=== PATIENT | female | born 1965 | race Caucasian/White ===

== ENCOUNTER → 2016-11-20 | Outpatient (CLI) | payer BC, OTHER ==
--- NOTE | 2016-11-20 12:34 | REP ---
DIGITAL DIAGNOSTIC BILATERAL MAMMOGRAPHY WITH CAD AND FOCUSED RIGHT BREAST SONOGRAPHY: HISTORY: Palpable lump in the right breast on patient breast self-examination. The patient reports that this is palpable for the last 2 weeks. Comparison mammography is from October 30, 2015, May 31, 2014, and May 17, 2013. MAMMOGRAPHIC FINDINGS: A skin marker is affixed to the skin at the site of the palpable lump in the upper outer quadrant right breast. Routine views the right breast are augmented by magnified focal spot compression CC, MLO and true MLO views. A well-circumscribed 2.4 cm mass is again seen in the upper outer quadrant of the right breast. This is unchanged from the most recent prior mammography of November 14, 2015. Cysts were identified in this location in 2012 in the appearance is changed little since 2012. No other mass lesion is seen. No architectural distortion, microcalcification, or worrisome skin change is seen on either side. Breast parenchyma remains heterogeneously dense in a pattern which may inhibit the sensitivity of mammography. SONOGRAPHIC FINDINGS: At the 10 o'clock position to 11 o'clock position in the right breast, sonography at the level of the palpable lump demonstrates a 2.7 x 2.4 x 2.0 cm anechoic cyst located 6 mm from the nipple. This is felt to account for the mammographic opacity and the palpable lump. No suspicious sonographic finding. IMPRESSION: BIRADS category 2 benign breast imaging. A 2.7 cm simple cyst is seen at the site of the palpable lump in the upper outer quadrant of the right breast confirmed sonographically. Clinical follow-up is advised. BI-RADS/ACR category 2 mammogram. Benign finding(s). Routine annual screening mammography (for women over age 40). This mammogram was interpreted with the aid of an FDA-approved computer-aided detection system. The patient states that she/he has not had a clinical breast exam in over a year. The patient letter being requested is M2, Dense . Signed by Victor Hugo Ascencio MD 11/20/2016 01:56 P
== END ==
LOC: M RAD 09:58
PROVIDERS: ATTEND Family Medicine
DX: N60.01 Solitary cyst of right breast (principal)
CPT/HCPCS: 76642; G0204

== ENCOUNTER → 2017-04-23 | Outpatient (CLI) | payer BC, OTHER ==
--- NOTE | 2017-04-23 20:18 | REP ---
HISTORY: Pain times one month. No trauma. COMPARISON: No priors. There is minimal tricompartmental marginal osteophytosis. There is no acute fracture. IMPRESSION: Slight degenerative changes. Signed by Jj Bolden DO 04/24/2017 10:37 A
== END ==
LOC: M WUC 19:29
PROVIDERS: ATTEND Physician Assistant
DX: M25.562 Pain in left knee (principal)

== ENCOUNTER → 2018-03-23 | Outpatient (REF) | payer BC, OTHER ==
[2018-03-26 14:16] LABS: HPV LOW VOL RFLX Negative (Negative)
== END ==
LOC: M LAB REF 09:37
DX: Z01.419 Encounter for gynecological examination (general) (routine) without abnormal findings (principal)
CPT/HCPCS: G0123

== ENCOUNTER → 2018-04-23 | Outpatient (CLI) | payer BC, OTHER | LOC: M RAD 08:38 | DX: Z12.31 Encounter for screening mammogram for malignant neoplasm of breast (principal) | CPT/HCPCS: 77067 ==

== ENCOUNTER → 2019-05-30 | Outpatient (CLI) | payer BC, OTHER ==
--- NOTE | 2019-05-30 15:12 | REPMRS ---
Patient History The patient states she has not had a clinical breast exam in over a year. Family history of breast cancer at age 50 or over in mother, breast cancer at age 50 or over in maternal grandmother, prostate cancer at age 50 or over in father. Took hormonal contraceptives for 2 years. Taking unspecified hormones for 20 years. Patient has numerous skin tags in both axilla, too many to jade Digital Mammo Screening Bilat: May 30, 2019 - Exam #: [id number] Bilateral CC and MLO view(s) were taken. Technologist: Mikayla Juarez, Technologist Prior study comparison: April 23, 2018, bilateral digital mammo screening bilat performed at [facility]. November 20, 2016, digital mammo diagnostic bilateral performed at [facility]. November 14, 2015, digital woman screen mammo, performed at [facility]. FINDINGS: The breast tissue is heterogeneously dense. This may lower the sensitivity of mammography. There are multiple well circumscribed nodular opacities in each breast, similar to previous study. On the right there has been a decrease in the size of one of these opacities since the 2017 prior study. On the left, there are two nodular opacities which appear more prominent than prior studies, one in the upper outer and the other in the inferomedial quadrant. These each measure 13 mm in greatest diameter. These merit further evaluation. There is a moderate amount of heterogeneously dense fibroglandular tissue which is fairly symmetric. There is no other interval development of dominant mass, architectural distortion, or grouped microcalcification typical of malignancy. There has been no other change in the appearance of the mammogram from the prior studies. 3-D tomosynthesis shows no additional findings. Assessment: BI-RADS/ACR category 0 mammogram, Incomplete: Need additional imaging evaluation and/or prior mammograms for comparison. Recommendation Ultrasound and special view mammogram of the left breast. This patient's Lifetime Breast Cancer RIsk is estimated at 19.1 %. This mammogram was interpreted with the aid of an FDA-approved computer-aided dectection system. Electronically Signed By: Byron Ascencio MD 05/30/19 [id number]
== END ==
LOC: M RAD 14:00
PROVIDERS: ATTEND Family Medicine
DX: R92.2 Inconclusive mammogram (principal); Z80.3 Family history of malignant neoplasm of breast; Z92.0 Personal history of contraception; Z92.23 Personal history of estrogen therapy

== ENCOUNTER → 2019-06-13 | Outpatient (CLI) | payer BC, OTHER ==
[~2019-06-13] MED LIST: AMLO5TAB6 PO; ATEN50TA2 PO; LETR2.5T2 PO; LEVO50TA5 PO; LOSA100T5 PO; METF500T13 PO; METO1TAB7 PO; SILV40CR EXT; SUPETAB44 PO
--- NOTE | 2019-06-13 16:48 | REP ---
DIAGNOSTIC MAMMOGRAM LEFT BREAST WITH LEFT BREAST ULTRASOUND: Spot compression views of the left breast was performed and correlated with the recent mammogram of 05/30/2019 and compared to other prior exams. Lobulated nodule in the medial inferior left breast is confirmed measuring approximately 1.3 cm in diameter. In the lateral aspect of the left breast there are two fairly smoothly marginated nodules adjacent to one another measuring about 14 mm and 9 mm maximally. Real-time sonographic evaluation of the left breast is performed. At the site of the lobulated nodule inferomedially there is a solid nodule at 7 o'clock measuring 1.2 x 1.1 x 1.0 cm. Margins are lobulated and it appears taller than wide with mild shadowing. Recommend ultrasound guided biopsy. Laterally in the upper outer quadrant of the left breast there are two cysts which appear to correspond to the two nodules by mammography, measuring 7 mm and 6 mm maximally. IMPRESSION: Lobulated nodule inferomedial left breast corresponds to a solid nodule at 7 o'clock by ultrasound. 1.2 cm in maximum diameter. This appears suspicious and I would recommend ultrasound guided biopsy with postprocedure mammogram. In the upper outer quadrant of the left breast, two nodules appear to correspond to benign cysts. ACR 4 suspicious. BIRADS 4: BI-RADS/ACR category 4 mammogram. Suspicious Abnormality - biopsy should be considered. The patient letter being requested is M4. Electronically Signed by Miguel Grace MD 06/14/2019 11:34 P
== END ==
LOC: M RAD 13:36
PROVIDERS: ATTEND Family Medicine
DX: R92.2 Inconclusive mammogram (principal); N63.20 Unspecified lump in the left breast, unspecified quadrant

== ENCOUNTER → 2019-07-11 | Outpatient (CLI) | payer BC, OTHER ==
[~2019-07-11] MED LIST changes: +LIDOCAINE 1% MDV 20ML VIAL As Ordered ONE
[2019-07-11 12:55] VITALS: BP 138/88
--- NOTE | 2019-07-11 13:37 | REP ---
POSTBIOPSY MAMMOGRAM LEFT BREAST: MLO and CC views left breast performed following ultrasound guided biopsy of a nodule in the medial aspect of the left breast, as identified on recent studies 05/30/2019 and 06/13/2019. A metallic clip is seen at the site of the nodule marking the site of the biopsy. Electronically Signed by Miguel Grace MD 07/12/2019 09:55 A
--- NOTE | 2019-07-12 09:54 | REP ---
ULTRASOUND GUIDED LEFT BREAST BIOPSY The procedure was performed under the direct supervision of Dr. Grace The patient has a history of a 1.2 cm lobulated nodule in the 7 o'clock position of the left breast seen on a previous mammogram dated 06/13/2019. The risks and benefits of the procedure were explained to the patient and informed consent was obtained. The left breast nodule was localized using ultrasound guidance. The skin was prepped and draped in a sterile fashion. 1% Xylocaine was used as a local anesthetic. Using ultrasound guidance a 13-gauge suction assisted Mammotome needle was inserted and six core biopsy samples were obtained. A marker clip was placed at the biopsy site. The patient tolerated the procedure well and there were no immediate complications. After the appropriate amount of monitored convalescence the patient was discharged from the department. Electronically Signed by JOEY Florence 07/11/2019 04:35 P Electronically Signed by Miguel Grace MD 07/12/2019 09:45 A
== END ==
LOC: M IRPRO 11:43
PROVIDERS: ATTEND Surgery
DX: N63.24 Unspecified lump in the left breast, lower inner quadrant (principal); C50.912 Malignant neoplasm of unspecified site of left female breast

== ENCOUNTER → 2019-07-26 | Outpatient (REF) ==
[~2019-07-26] MED LIST changes: -AMLO5TAB6 PO; -LETR2.5T2 PO; -LIDOCAINE 1% MDV 20ML VIAL As Ordered ONE; -METO1TAB7 PO; -SILV40CR EXT
== END ==
LOC: M LAB LCGH 15:21
PROVIDERS: ATTEND Nurse Practitioner Family
DX: L82.1 Other seborrheic keratosis (principal)

== ENCOUNTER → 2019-07-27 | Outpatient (CLI) | payer BC, OTHER ==
[2019-07-27 15:20] LABS: CALCIUM LEVEL 9.8 MG/DL (8.5-10.1); CREATININE FOR GFR 1.07 MG/DL (0.55-1.30); GLOMERULAR FILTRATION RATE 57.1 (>51); POTASSIUM SERUM 4.6 MEQ/L (3.5-5.1)
--- NOTE | 2019-07-30 09:43 | ECGEPIP ---
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
== END ==
LOC: M LAB 14:15
PROVIDERS: ATTEND Anesthesiology
DX: E11.9 Type 2 diabetes mellitus without complications (principal); I10 Essential (primary) hypertension

== ENCOUNTER 2019-08-02 06:13 | Day surgery (SDC) | payer BC, OTHER ==
[~2019-08-02] VITALS: Ht 158.8 cm; Wt 136.5 kg
[~2019-08-02 06:13] MED LIST changes: +LIDOCAINE 1% MDV 20ML VIAL SQ PRN; +LIDOCAINE 5% (LIDODERM) PATCH TD ONE; +LR 1,000 ML IV ONE
[2019-08-02] MEDS ORDERED: LIDOCAINE 5% (LIDODERM) PATCH As Ordered ONE (06:58)
--- NOTE | 2019-08-02 07:30 | ECGEPIP ---
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
[2019-08-02] MEDS ORDERED: LIDOCAINE 1% MDV 20ML VIAL As Ordered ONE (08:01)
[2019-08-02] MEDS ORDERED: METHYLENE BLUE 0.5% (5MG/ML) 10 ML AMP (PROVAYBLUE)(Q9968 PER 1MG) As Ordered ONE (10:43)
[2019-08-02] MEDS ORDERED: ROCURONIUM BROMIDE 50 MG/5 ML VIAL As Ordered ONE ×2 (11:25→12:00)
[2019-08-02] MEDS ORDERED: PROPOFOL 200 MG/20 ML VIAL As Ordered ONE ×2 (11:25→13:00)
[2019-08-02] MEDS ORDERED: MIDAZOLAM INJ 2 MG/2 ML VIAL (J2250) As Ordered ONE (11:25)
[2019-08-02] MEDS ORDERED: LIDOCAINE 2% INJ 100 MG/5 ML SDV (FOR ANES.) As Ordered ONE (11:25)
[2019-08-02] MEDS ORDERED: dexameTHASONE 4 MG/ML 1ML VIAL (J1100) As Ordered ONE (11:25)
[2019-08-02] MEDS ORDERED: fentaNYL 250 MCG/5 ML INJECTION (J3010) As Ordered ONE (11:25)
[2019-08-02] MEDS ORDERED: DESFLURANE 240 ML INHALANT As Ordered ONE (12:00)
[2019-08-02] MEDS ORDERED: ACETAMINOPHEN 1000MG 100ML IV BTL (OFIRMEV) (J0131 PER 10MG) As Ordered ONE (12:04)
[2019-08-02] MEDS ORDERED: ONDANSETRON 4MG/2ML VIAL (J2405) As Ordered ONE ×2 (12:48→12:49)
[2019-08-02] MEDS ORDERED: SUGAMMADEX SODIUM 500 MG/5 ML VIAL (BRIDION) As Ordered ONE (12:58)
[2019-08-02] MEDS ORDERED: HYDROmorphone HCL 2 MG/ML 1ML VIAL (J1170) As Ordered ONE (13:50)
[2019-08-02] MEDS ORDERED: KETOROLAC 60 MG/2 ML VIAL (J1885) As Ordered ONE (14:17)
[2019-08-02] MEDS ORDERED: HYDROMORPHONE HCL 0.5 MG/ 0.5 ML SYRINGE (J1170 PER 1) IV PRN (15:15)
[2019-08-02] MEDS ORDERED: ACETAMINOPHEN TAB 650MG DOSE (2X325MG) PO PRN ×2 (15:15→16:45)
[2019-08-02] MEDS ORDERED: fentaNYL 100 MCG/2 ML INJECTION (J3010) IV PRN (15:15)
[2019-08-02] MEDS ORDERED: oxyCODONE 5MG TAB PO PRN (15:15)
[2019-08-02] MEDS ORDERED: METOCLOPRAMIDE INJ 10MG/2ML VIAL (J2765) IV PRN ×2 (15:15→16:45)
[2019-08-02] MEDS ORDERED: ONDANSETRON 4MG/2ML VIAL (J2405) IV PRN ×2 (15:15→16:45)
[2019-08-02] MEDS ORDERED: NORCO, ANEXSIA 5/325MG TABLET (HYDROcodone/ACETAMINOPHEN) PO PRN ×2 (15:15→16:45)
[2019-08-02] MEDS ORDERED: LR 1,000 ML IV SCH ×2 (15:15→17:30)
[2019-08-02] MEDS ORDERED: MORPHINE 4 MG/ML 1ML VIAL/SYRINGE (J2270) IV PRN (16:45)
[2019-08-02] MEDS ORDERED: oxyCODONE 5MG TAB As Ordered ONE (17:09)
--- NOTE | 2019-08-02 17:24 | REP ---
Specimen radiography: Four views. History: The patient is status post needle localization directed excisional biopsy left breast for a medial nodule. Findings: A sequence of two specimen radiograph images demonstrate the needle biopsy marker clip and the target nodule along the course of the localizer wire within the specimen. Impression: The target nodule has been removed. Electronically Signed by Victor Hugo Ascencio MD 08/02/2019 06:50 P
[2019-08-02 18:28] VITALS: BP 153/70
[2019-08-02] MEDS: metFORMIN (GLUCOPHAGE) 500 MG TAB PO SCH (18:59)
--- NOTE | 2019-08-02 19:01 | REP ---
Left Breast Lymphoscintigraphy The procedure was performed by JOEY Galvan, under the direct supervision of Dr. Ascencio. The risks and benefits of the procedure were explained to the patient and informed consent was obtained both verbally and written. Directly prior to the start of the procedure, a formal timeout was completed in the procedure room. Using topical anesthetic and sterile technique 1.059] mCi of technetium 99m filtered sulfur colloid was injected subdermally in eight fractionated periareolar injections. Images obtained 1 hour after injection show bolivar uptake laterally and superiorly-medially Impression: 1. Bolivar uptake laterally and superiorly-medially Reviewed by JOEY Hahn 08/02/2019 12:03 P Electronically Signed by Victor Hugo Ascencio MD 08/02/2019 06:52 P
--- NOTE | 2019-08-02 19:02 | REP ---
Left breast localization This procedure is performed by JOEY Galvan, under the personal supervision of Dr. Ascencio. The risks and benefits of the procedure were explained to the patient and informed consent was obtained both verbally and written. Directly prior to the start of the procedure, a formal timeout was done in the procedure room. The lateral approach was utilized. The marker clip was localized using mammographic guidance. The skin was prepped and draped in a sterile fashion. 6 ml of 1% lidocaine was used as a local anesthetic. A 7-cm Kerrick needle wire system was inserted. A followup mammographic images demonstrate good needle placement. The patient tolerated the procedure well and there were no immediate complications. Reviewed by JOEY Hahn 08/02/2019 01:22 P Electronically Signed by Victor Hugo Ascencio MD 08/02/2019 06:52 P
[2019-08-02 21:45] VITALS: BP 137/61
[2019-08-03 02:24] VITALS: BP 142/61
[2019-08-03] MEDS ORDERED: LEVOTHYROXINE 75MCG TABLET (0.075MG) PO SCH (06:00)
[2019-08-03 06:08] VITALS: BP 143/63
[2019-08-03 08:13] VITALS: BP 144/64
[2019-08-03] MEDS: metFORMIN (GLUCOPHAGE) 500 MG TAB PO SCH (08:13)
[2019-08-03] MEDS ORDERED: hydroCHLOROthiazide 25 MG TAB PO SCH (09:00)
[2019-08-03] MEDS ORDERED: LOSARTAN 50 MG TAB PO SCH (09:00)
[2019-08-03] MEDS ORDERED: ATENOLOL 50 MG TAB PO SCH (09:00)
[2019-08-03 10:00] VITALS: BP 140/63
--- NOTE | 2019-08-04 08:51 | IPN ---
DATE: 08/03/2019 HISTORY: Patient is 1 day postop from her left partial mastectomy with sentinel lymph node biopsy for breast cancer. She was placed on observation because of inadequate oxygen saturations in the recovery room. She has done well overnight and her oxygen has been weaned off this morning with an oxygen saturation recorded of 93%. She reports she is quite comfortable with only some mild soreness in the breast. Vital signs show that she has been afebrile overnight. Her pulse is in the 50s. Blood pressure is good. Intake and output show that she has had 800 mL orally today with 625 mL of urine output. PHYSICAL EXAM: The patient's left breast dressing shows a small amount of dried blood overlying the partial mastectomy site. She has clear breath sounds and the heart is a regular rate and rhythm. IMPRESSION: The patient is doing very well now 1 day postop. She is off oxygen with acceptable oxygen saturations. By history from her it does sound as if she may have sleep apnea and this should be looked into on an outpatient basis. She has taken no pain medications today. PLAN: The patient will be discharged home. She will not be provided a prescription for any pain medications. She was counseled regarding activity and diet. She has a followup appointment with me on 08/15/2019. She can change her dressing and shower on 08/07/2019. ROSE
--- NOTE | 2019-08-04 13:59 | RO ---
DATE OF PROCEDURE: 08/02/2019 PREOPERATIVE DIAGNOSIS: Infiltrating ductal carcinoma left breast. POSTOPERATIVE DIAGNOSIS: Infiltrating ductal carcinoma left breast. PROCEDURES PERFORMED 1. Left breast/axilla sentinel lymph node biopsy. 2. Needle-localized left partial mastectomy. SURGEON: Camilo Andrea MD ANESTHESIA: General. INDICATIONS FOR THE PROCEDURE: The patient is a 53-year-old woman who was found on routine mammography to have a small nodule in the lower inner aspect of the left breast. Ultrasound-guided biopsy confirmed carcinoma. She is now for a left partial mastectomy, which will require needle localization and a sentinel lymph node biopsy. OPERATIVE PROCEDURE: The patient was taken to the x-ray department prior to her going to the operating room. She underwent a needle localization of her known cancer in the lower inner aspect of the left breast. She also underwent injections of radioactive tracer for her sentinel lymph node biopsy. Lymphoscintigraphy was performed. She was then moved to the operating room. She was placed on the table in a supine position. Thromboembolic deterrents (TEDs) and sequentials were utilized. The patient was placed under general endotracheal anesthesia. The patient's left breast, axilla, and upper extremity were prepped and draped in a sterile fashion. I would note that prior to performing the prep, I did inject several small aliquots of a 50/50 mixture of saline and methylene blue to facilitate identification of the lymph nodes. This was injected in the subcutaneous tissues of the upper outer quadrant of the breast around the edge of the areola and also into the area of her known cancer. Initially, I proceeded with the sentinel lymph node biopsy. Examination with the gamma probe revealed some fairly intense activity in the lower anterior aspect of the axilla in the area about 2.5-3 cm in maximum diameter. A short transverse incision was made in this area. The dissection was carried through the subcutaneous tissues using the cautery. The axillary fascia was opened, and dissection was carried deeper into the axilla utilizing the NeoProbe for guidance. The area of hottest activity was identified, and a lymph node approximately 1 cm in diameter was identified and removed with a small amount of surrounding fibrofatty tissue. A 10-second gamma count was 49,730. This was marked sentinel node #1. A second area of activity was identified adjacent to this, and a second smaller node was removed. This had a 10-second count of 6460. This was labeled sentinel node #2, and these two were sent to the laboratory fresh for frozen section. Inspection with the NeoProbe identified continued activity of fairly significant intensity. A third node also about 1 cm in size was removed with some surrounding fibrofatty tissue. This had a 10-second gamma count of 20,235, and a fourth area of much less intense activity which may actually have represented a small portion of the node #3 was removed. This had a count of 1543. Background count was approximately 253. No further areas of significant gamma activity were identified with the NeoProbe. The wound was irrigated gently, and hemostasis was ensured. I proceeded to place several sutures of chromic at the level of the fascia. I was contacted by Dr. Morales of the pathology department indicating that all of the nodes were negative on frozen section for any malignancy. The skin edges were approximated with a running subcuticular 4-0 Vicryl. I then moved onto the left partial mastectomy. The localizing wire entered the medial aspect of the left breast about at the level of the nipple but extended slightly inferior below approximately the edge of the areola inferiorly. A skin marker was used to outline the course of the wire. I elected to make an infraareolar curved incision, excising a small rim of tissue in this area. The incision was made, and the rim of tissue was left attached to the underlying skin to aid in manipulation of the specimen. The skin edges were elevated surrounding the wound, and a portion of tissue approximately 6 cm in length x 4 cm in width x 4-5 cm in thickness was excised. The dissection was primarily using the cautery. Once the tissues had been partially mobilized, the guidewire was cut and delivered into the wound. The dissection was carried down just about to the pectoral fascia. The specimen was removed. It was kept in the appropriate orientation and was marked with the Vector margin marker. Two specimen x-rays were obtained using the [employer] System51[employer] portable mammography unit. These identified the cancer nodule with a marker clip lying within the center of the specimen along the course of the guidewire. The wound was inspected, and hemostasis was ensured. The skin edges were elevated off of the surrounding breast tissue to allow greater mobility of the tissue for closing the defect. The deeper tissues were approximated with interrupted simple sutures of 2-0 chromic. Some 3-0 Vicryl was used to close the edges of the skin, and a running subcuticular 4-0 Vicryl was used to approximate the skin edges more cosmetically. Steri-Strips were applied to both incisions. Bulky bandages were applied. The patient tolerated the procedure well without apparent complication. She was awakened in the operating room, extubated, and moved to the recovery room in stable condition. ROSE
== END 2019-08-03 13:30 | disposition home or self-care (01) ==
LOC: M SDC 06:13 → M MS5PR 17:50 → M SDC 08-03 13:30
PROVIDERS: ATTEND Surgery
DX: C50.912 Malignant neoplasm of unspecified site of left female breast (principal); I10 Essential (primary) hypertension; E03.9 Hypothyroidism, unspecified; E11.9 Type 2 diabetes mellitus without complications; R01.1 Cardiac murmur, unspecified; R06.83 Snoring; K21.9 Gastro-esophageal reflux disease without esophagitis; E66.01 Morbid (severe) obesity due to excess calories; Z68.43 Body mass index [BMI] 50.0-59.9, adult; Z79.899 Other long term (current) drug therapy; Z79.84 Long term (current) use of oral hypoglycemic drugs; Z78.0 Asymptomatic menopausal state
CPT/HCPCS: 19302; 76098; 78195; 88307; 93005; A9541; J0131; J1100; J1170; J1885; J2250; J2405; J3010; Q9968

== ENCOUNTER 2019-09-08 13:57 | Outpatient (RCR) | payer BC, OTHER ==
[~2019-09-08 13:57] MED LIST changes: +AMLO5TAB6 PO; +LETR2.5T2 PO; -LIDOCAINE 1% MDV 20ML VIAL SQ PRN; -LIDOCAINE 5% (LIDODERM) PATCH TD ONE; -LR 1,000 ML IV ONE; +METO1TAB7 PO
[2019-09-08 14:40] LABS: BASO % 0.4 % (0.0-1.0); EOS # 0.1 10^3/uL (0.0-0.5); EOS % 0.8 % (0.0-3.0); HEMATOCRIT 40.9 % (36.0-47.0); HEMOGLOBIN 13.6 g/dl (12.0-15.5); LYMPH # 1.8 10^3/uL (1.5-5.0); LYMPH % 16.6 % (24.0-44.0); MEAN CORPUSCULAR HEMOGLOBIN 29.8 pg (27.0-33.0); MEAN CORPUSCULAR HGB CONC 33.3 g/dl (32.0-36.5); MEAN CORPUSCULAR VOLUME 89.5 fl (80.0-96.0); MONO # 0.6 10^3/uL (0.0-0.8); NEUTROPHILS # 8.4 10^3/uL (1.5-8.5); NEUTROPHILS % 76.7 % (36.0-66.0); PLATELET COUNT, AUTOMATED 272 10^3/uL (150-450); RED BLOOD COUNT 4.57 10^6/uL (4.00-5.40)
--- NOTE | 2019-09-12 12:30 | RADONC ---
RADIATION ONCOLOGY SIMULATION NOTE DATE OF SERVICE: 09/08/2019 CHART NUMBER: [id number] Ms. Becerra was taken to the CT scan for CT simulation of her left breast field. CT was accomplished without difficulty or discomfort. Radiation treatment planning is underway and radiation treatments will begin subsequently. An immobilization device was created without difficulty or discomfort. It will be used throughout the course of treatment. I was physically present throughout the course of CT simulation. The patient reports that there was a small section of her scar which opened up last night in the shower. She has put Steri-Strips over it, so it is difficult for me to actually see. In light of this, we will run our treatment plans, and I have informed her that I would like to wait till the Thursday after Thanks to initiate treatment. This will allow an additional 1-1/2-2 weeks for healing and still be within acceptable time period.
== END 2019-09-17 ==
LOC: M ONCR 13:57
PROVIDERS: ATTEND Radiology Radiation Oncology
DX: C50.312 Malignant neoplasm of lower-inner quadrant of left female breast (principal); T81.31XA Disruption of external operation (surgical) wound, not elsewhere classified, initial encounter

== ENCOUNTER → 2019-10-18 | Outpatient (RCR) | payer BC, OTHER ==
--- NOTE | 2019-09-27 07:12 | RADONC ---
RADIATION ONCOLOGY PROGRESS NOTE DATE: 09/26/2019 CHART NUMBER: [id number] PROGRESS NOTE: Ms. Becerra is presently at a dose of 900 cGy to her left breast and is tolerating treatments quite well at this point with no complaints related to her radiation therapy. She is having no breast or bone pain. REVIEW OF SYSTEMS: The patient's review of systems is noncontributory. Denies nausea, vomiting, fevers, chills, night sweats, diplopia, headaches, anxiety or depression, anorexia, weight loss, visual disturbances, chest pain, urinary or bowel difficulties, bone pain, or neurological problems. PHYSICAL EXAMINATION: The patient's skin is in good condition with no evidence of moist or dry desquamation. The remainder of her physical exam remains unchanged. Ms. Becerra is tolerating treatments quite well and radiation will continue as scheduled.
--- NOTE | 2019-10-05 08:14 | RADONC ---
RADIATION ONCOLOGY PROGRESS NOTE DATE: 10/03/2019 CHART #: [id number] Ms. Becerra is presently at a dose of 1800 cGy to her left breast and is tolerating treatments quite well at this point with no complaints related to her radiation therapy. She has no breast or bone pain. REVIEW OF SYSTEMS: The patient's review of systems is noncontributory. Denies nausea, vomiting, fevers, chills, night sweats, diplopia, headaches, anxiety or depression, anorexia, weight loss, visual disturbances, chest pain, urinary or bowel difficulties, bone pain, or neurological problems. PHYSICAL EXAMINATION: The patient's skin is in good condition with no evidence of radiation change present. There is no moist or dry desquamation. The remainder of her physical exam remains unchanged. Ms. Becerra is tolerating treatments quite well and radiation will continue as scheduled.
--- NOTE | 2019-10-14 09:04 | RADONC ---
RADIATION ONCOLOGY PROGRESS NOTE DATE OF SERVICE: 10/10/2019 CHART NUMBER: [id number] Ms. Becerra, with a diagnosis of left breast cancer, is currently receiving local regional radiotherapy and she is at a dose of 2700 cGy to date. She is tolerating her radiotherapy quite well and denies any nausea, vomiting, coughing, sputum production or hemoptysis. Her energy level is excellent. She is able to maintain most for day-to-day activities without any alteration of her lifestyle. Skin irritation is not an issue for her. PHYSICAL EXAMINATION: The skin within the irradiated volume shows no significant erythema and certainly no focal desquamation. There is no palpable peripheral lymphadenopathy noted in the cervical, supraclavicular, axillary or inguinal lymph node chains. The remainder of the physical examination is unchanged. IMPRESSION: Tolerating therapy well. PLAN: Treatments to continue MTDD
--- NOTE | 2019-10-17 15:53 | RADONC ---
RADIATION ONCOLOGY PROGRESS NOTE DATE: 10/17/2019 CHART NUMBER: [id number] Lashonda Becerra with the diagnosis of left breast cancer stage IA, T1c, N0, M0, grade 1, HER2/kathleen negative, ER positive, NE positive is currently receiving local regional radiotherapy. She has achieved a dose to date of 3240 cGy of an anticipated 4680 cGy with a boost most likely to follow. She is tolerating her radiotherapy reasonably well, denying any nausea, vomiting, coughing, sputum production or hemoptysis. Her energy level is excellent and she is able to maintain most of her day-to-day activities without any alteration of her lifestyle. Skin irritation is not reported. She will start some Aquaphor for a very minimal discoloration of the skin. EXAMINATION FINDINGS: The skin within the irradiated volume shows virtually no evidence of erythema and certainly no focal desquamation. There is no palpable peripheral lymphadenopathy appreciated in the cervical, supraclavicular, axillary or inguinal lymph node chains. Lungs are clear. Heart regular without murmurs. Abdomen without evidence of hepatomegaly, masses, deep abdominal tenderness. Extremities without cyanosis, clubbing or edema. The remainder of the physical examination is unchanged. IMPRESSION: Tolerating therapy well. PLAN: Treatments to continue.
[~2019-10-18] MED LIST changes: +SILV40CR EXT
== END ==
LOC: M ONCR 09-20 12:42
PROVIDERS: ATTEND Radiology Radiation Oncology
DX: C50.312 Malignant neoplasm of lower-inner quadrant of left female breast (principal)

== ENCOUNTER 2019-11-14 14:10 | Outpatient (RCR) | payer BC, OTHER ==
--- NOTE | 2019-10-25 08:04 | RADONC ---
RADIATION ONCOLOGY PROGRESS NOTE DATE: 10/24/2019 CHART #: [id number] Ms. Becerra is thus far at a dose of 3420 cGy and was last treated on 10/18/2019. She has been on break this week due to a brisk skin reaction. On her last treatment on 10/18/2019, she had some desquamation of the skin. The patient is scheduled to be on rest until Thursday or of this week and then will be reevaluated for reinitiation of treatment.
--- NOTE | 2019-11-01 09:40 | RADONC ---
RADIATION ONCOLOGY SIMULATION NOTE DATE: 10/31/2019 CHART NUMBER: [id number] SIMULATION NOTE: Ms. Becerra was taken to the linear accelerator today for clinical setup of her left breast electron beam coned-down field. Setup was accomplished without difficulty or discomfort. Radiation treatment planning is underway and radiation treatments will begin subsequently. An immobilization device was created and will be used throughout the course of treatment. It was created without difficulty or discomfort. I was physically present throughout the course of clinical setup simulation.
--- NOTE | 2019-11-01 09:42 | RADONC ---
RADIATION ONCOLOGY PROGRESS NOTE DATE: CHART NUMBER: [id number] PROGRESS NOTE: Ms. Becerra is presently at a dose of 3960 cGy to her left breast and is tolerating treatments quite well at this point with no complaints related to her radiation therapy other than some pain in the inframammary and axillary regions. REVIEW OF SYSTEMS: The patient's review of systems is positive for skin some skin pain but is otherwise noncontributory. Denies nausea, vomiting, fevers, chills, night sweats, diplopia, headaches, anxiety or depression, anorexia, weight loss, visual disturbances, chest pain, urinary or bowel difficulties, bone pain, or neurological problems. PHYSICAL EXAMINATION: The patient's skin shows brisk erythema and tanning present. In the axillary inframammary regions there is moist desquamation. The remainder of her physical exam remains unchanged. The patient is using Silvadene in the affected areas and reports she is having marked improvement in her discomfort. In the meantime, radiation is continuing as scheduled.
--- NOTE | 2019-11-08 07:39 | RADONC ---
RADIATION ONCOLOGY PROGRESS NOTE DATE: 11/07/2019 CHART #: [id number] Ms. Becerra is presently at a dose of 4880 cGy to her left breast primary site and is tolerating treatments quite well at this point with no complaints at this time related to her radiation therapy. She is having no breast or bone pain other than some mild skin pain in the inframammary region. REVIEW OF SYSTEMS: The patient's review of systems is largely noncontributory. Denies nausea, vomiting, fevers, chills, night sweats, diplopia, headaches, anxiety or depression, anorexia, weight loss, visual disturbances, chest pain, urinary or bowel difficulties, bone pain, or neurological problems. PHYSICAL EXAMINATION: The patient's skin overall is in good condition. There is some desquamation in the inframammary region. The area presently being treated however has no desquamation. The remainder of her physical exam remains unchanged. Ms. Becerra is tolerating treatments quite well and radiation will continue as scheduled.
--- NOTE | 2019-11-16 08:18 | RADONC ---
RADIATION ONCOLOGY TREATMENT SUMMARY DATE: 11/14/2019 CHART NUMBER: [id number] DIAGNOSIS: Left breast cancer. STAGE: I A, pT1c, bN0, M0, grade 1, HER2/kathleen negative, ER positive, VA positive. ECOG PERFORMANCE STATUS: 0 TREATMENT SUMMARY: Ms. Becerra is a very pleasant 53-year-old white female with the diagnosis of what appears to be a stage I A, pT1c, bN0, M0, well-differentiated, grade 1, colloid/mucinous adenocarcinoma of the left breast which is ER positive, VA positive and HER2/kathleen negative who presented to us status post lumpectomy and sentinel lymph node biopsy for consideration of postoperative radiation therapy for conservative breast management. We treated the patient to her left breast for a total dose of 4860 cGy delivered in 26 fractions of 180 cGy each over 45 elapsed days from 09/20/2019 through 11/04/2019. The patient's left breast was treated on a linear accelerator via 3-D conformal technique with a 15 MV photon beam. Medial and lateral tangential reynolds were utilized. Following completion of 4680 cGy the primary site was boosted for an additional 1200 cGy delivered in 6 fractions of 200 cGy each over seven elapsed days from 11/07/2019 through 11/14/2019. The primary site boost was treated on a linear accelerator utilizing a 16 MeV electron beam prescribed to the 90% isodose line via non phos technique. This brought the primary site to a total dose of 5880 cGy delivered in 32 fractions over 52 elapsed days from 09/20/2019 through 11/14/2019. Ms. Becerra had some difficulties tolerating treatments with brisk skin reaction requiring a short treatment break. She was then able to resume radiation without further difficulty. I have scheduled the patient to see me again in 1 month for further followup. She will also continue to be followed by her other physicians as well. cc: MD Camilo Olmos MD Karen Williams, MD
== END 2019-11-18 ==
LOC: M ONCR 14:10
PROVIDERS: ATTEND Radiology Radiation Oncology
DX: C50.312 Malignant neoplasm of lower-inner quadrant of left female breast (principal)

== ENCOUNTER → 2019-12-14 | Outpatient (CLI) | payer BC, OTHER ==
[~2019-12-14] MED LIST changes: +OSTE5TAB PO
--- NOTE | 2019-12-15 11:14 | RADONC ---
RADIATION ONCOLOGY FOLLOWUP NOTE DATE: 12/14/2019 CHART #: [id number] DIAGNOSIS: Left breast cancer. STAGE: I A, pT1c,pN0,M0, grade 1, HER2/kathleen negative, ER positive, GA positive. ECOG PERFORMANCE STATUS: 0. FOLLOWUP NOTE Ms. 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 The patient presents today reporting that she is doing quite well with no complaints at this time related to her radiation therapy or disease. She has no breast or bone pain. REVIEW OF SYSTEMS: The patient's review of systems is noncontributory. Denies nausea, vomiting, fevers, chills, night sweats, diplopia, headaches, anxiety or depression, anorexia, weight loss, visual disturbances, chest pain, urinary or bowel difficulties, bone pain, or neurological problems. PHYSICAL EXAMINATION: The patient is a well-developed, well-nourished female in no acute distress. HEENT exam is normocephalic, atraumatic. Extraocular movements are intact. There is no palpable cervical, supraclavicular, infraclavicular, axillary, or inguinal lymphadenopathy present. Lungs are clear to auscultation and percussion. Heart has a regular rate and rhythm. Abdomen is benign with no hepatosplenomegaly, masses, or tenderness. Breast examination reveals no masses or discharge bilaterally. Skeletal examination reveals no tenderness to pressure or percussion of the bony skeleton. Extremities reveal no clubbing, cyanosis, or edema. Neurologic exam is grossly intact, as is the remainder of the physical examination. ASSESSMENT: The patient is clinically JOSEFINA at this time. She is being followed and managed closely by her medical oncologist, Dr. Miracle Gómez, as well as her other physicians and therefore is being discharged from our followup except on a p.r.n. basis. cc: MD Camilo Olmos MD Karen Williams, MD
== END ==
LOC: M ONCR 14:09
PROVIDERS: ATTEND Radiology Radiation Oncology
DX: C50.312 Malignant neoplasm of lower-inner quadrant of left female breast (principal)

== ENCOUNTER → 2020-06-26 | Outpatient (CLI) | payer BC ==
[~2020-06-26] MED LIST changes: +AMLO1TAB24 PO; -AMLO5TAB6 PO; +HYDR25TAB PO; +LOSA100T50 PO
--- NOTE | 2020-06-26 15:05 | REPMRS ---
Patient History The patient states she has not had a clinical breast exam in over a year. Family history of breast cancer at age 50 or over in mother, breast cancer at age 50 or over in maternal grandmother, prostate cancer at age 50 or over in father. Malignant radio exam breast specimen of the left breast, August 02, 2019. Malignant localization of breast nodule of the left breast, August 02, 2019. Malignant US guided breast biopsy of the left breast, July 11, 2019. Took hormonal contraceptives for 2 years. Taking unspecified hormones for 20 years. 3D TOMOSYNTHESIS WAS PERFORMED. [employer] [facility]. Digital Woman Screen Mammo: June 26, 2020 - Exam #: [id number] Bilateral CC and MLO view(s) were taken. Technologist: Vanessa Evans Technologist Prior study comparison: July 11, 2019, left breast digital mammo diagnostic unilateral, performed at [facility]. June 13, 2019, left breast digital mammo diagnostic unilateral, performed at [facility]. FINDINGS: There are scattered fibroglandular densities. There is a fairly symmetric fibroglandular pattern in both breasts. There has been no interval development of masses, areas of architectural distortion or clusters of microcalcifications typical of malignancy. There is a stable nodule in each breast. Assessment: BI-RADS/ACR category 2 mammogram. Benign Findings. Recommendation Routine screening mammogram of both breasts in 1 year (for women over age 40). This mammogram was interpreted with the aid of an FDA-approved computer-aided dectection system. Electronically Signed By: Miguel Grace MD 06/26/20 [id number]
== END ==
LOC: M WHC 14:10
PROVIDERS: ATTEND Internal Medicine Hematology & Oncology
DX: Z12.31 Encounter for screening mammogram for malignant neoplasm of breast (principal); C50.912 Malignant neoplasm of unspecified site of left female breast

== ENCOUNTER → 2020-08-10 | Outpatient (CLI) | payer BC ==
--- NOTE | 2020-08-10 15:53 | REP ---
INDICATION: N95.0 POSTMENOPAUSAL BLEEDING,HX BREAST CA COMPARISON: None. TECHNIQUE: Transabdominal pelvic ultrasound followed by transvaginal examination for better evaluation of the endometrium and adnexa with color Doppler evaluation of the ovaries. FINDINGS: Bladder is unremarkable and measures 6.1 x 7.8 x 4.1 cm. Anteverted uterus measures 8.3 x 4.4 x 4.7 cm and appears heterogeneous. Evaluation is somewhat limited due to body habitus and technical factors as well as overlying bowel gas. The endometrial complex measures approximately 8.4 mm thickness thickness. No obvious discrete abnormality identified. Ovaries are not visualized on either transabdominal or transvaginal imaging. No pelvic fluid or obvious adnexal mass. IMPRESSION: Considerably limited examination. Heterogeneous appearance to the uterus without discrete borders delineating myometrium and endometrium. The endometrial complex measures roughly 8.4 mm. No obvious focal mass lesion or abnormality is otherwise identified. If necessary consider pelvic MRI for further investigation. <Electronically signed by Giovanny Cabrera > 08/10/20 [id number]
== END ==
LOC: M WHC 14:18
PROVIDERS: ATTEND Obstetrics & Gynecology
DX: N95.0 Postmenopausal bleeding (principal)

== ENCOUNTER → 2020-08-21 | Outpatient (REF) | payer BC | LOC: M SFHCWAGY 19:16 | PROVIDERS: ATTEND Obstetrics & Gynecology | DX: N95.0 Postmenopausal bleeding (principal) ==

== ENCOUNTER → 2021-04-17 | Outpatient (CLI) | payer BC, OTHER ==
[~2021-04-17] MED LIST changes: +HYDR-3490 PO; -HYDR25TAB PO
--- NOTE | 2021-04-23 15:36 | SLEEPHOME ---
DIAGNOSTIC HOME SLEEP STUDY DATE: 04/17/2021 ORDERED BY: [facility] home sleep testing was performed due to concern for the obstructive sleep apnea syndrome in this patient. For testing, a nocturnal T3 respiratory monitoring device was used. Continuous record was made of pulse, oxygen saturation, air flow, chest and abdominal strain, and body position. 9 hours and 59 minutes of data were reviewed. There were 7 hours and 5 minutes marked as time in bed. During the interval marked time in bed, there were 243 respiratory events identified of 10 seconds in duration or greater for a respiratory event index 34.2. The events were primarily obstructive. Baseline pulse rate 62. Pulse rate range 46 to 102. Baseline saturation was 91%. Saturations fell to 57%. Testing was performed in both the supine and non-supine positions. IMPRESSION: Abnormal home sleep testing, with repetitive respiratory events and oxygen desaturations to 57% with a respiratory event index of 34.2, is consistent with the obstructive sleep apnea syndrome. RECOMMENDATION: The patient should be encouraged to undergo referral for formal sleep evaluation.
== END ==
LOC: M SLEEP HO 11:27
PROVIDERS: ATTEND Nurse Practitioner Family
DX: G47.33 Obstructive sleep apnea (adult) (pediatric) (principal)

== ENCOUNTER → 2021-07-02 | Outpatient (REF) | payer BC, OTHER ==
[2021-07-02 18:18] LABS: MALB URINE SIEMENS 45.4 MG/L; MAU/CREAT RATIO 15.3 MCG/MG (0.0-30.0)
== END ==
LOC: M LAB REF 17:07
PROVIDERS: ATTEND Nurse Practitioner Family
DX: E11.69 Type 2 diabetes mellitus with other specified complication (principal)

== ENCOUNTER → 2021-07-05 | Outpatient (CLI) | payer BC ==
--- NOTE | 2021-07-05 15:05 | REP ---
INDICATION: LYNDSAY SCR MAMMO/HX BREAST CA. COMPARISON: Multiple TECHNIQUE: Digital screening mammography was carried out bilaterally in the CC and MLO projections using both 2D and 3D modalities and compared to the prior exams. By history, the patient has no complaints of a palpable breast abnormality or other significant breast complaints. FINDINGS: The breasts are unchanged in size and shape when compared to the most recent examination obtained 06/26/2020. No vinny soft tissue densities or spiculated masses have developed. There is unchanged left breast postprocedural architectural distortion and there is unchanged left breast post radiation skin thickening. In the axillary tail region of the left breast seen only on the MLO view there is a new grouping of calcifications. No other suspicious features are seen in either breast. The Volpara volumetric breast density pattern is seen. IMPRESSION: BIRADS/ACR category 0 mammogram. New grouping of calcifications seen in a limited fashion left breast as described above and for which diagnostic digital magnified spot compression views are recommended in the MLO, true lateral, and if necessary both exaggerated CC medial and lateral views. This mammogram was interpreted with the aid of an FDA-approved computer-aided detection system. The patient states she had a clinical breast exam in over a year. The patient letter being requested is M0. RECOMMENDATION: As above <Electronically signed by Jj Bolden > 07/05/21 [id number]
== END ==
LOC: M WHC 14:08
PROVIDERS: ATTEND Internal Medicine Hematology & Oncology
DX: Z12.31 Encounter for screening mammogram for malignant neoplasm of breast (principal); R92.1 Mammographic calcification found on diagnostic imaging of breast; Z92.3 Personal history of irradiation; Z85.3 Personal history of malignant neoplasm of breast

== ENCOUNTER → 2021-08-01 | Outpatient (CLI) | payer BC, OTHER ==
--- NOTE | 2021-08-01 13:12 | REP ---
INDICATION: LEFT BREAST ADD VIEWS. COMPARISON: 07/05/2021 as well as multiple other prior exams. TECHNIQUE: Additional magnification and special positioning views of the left breast are performed. FINDINGS: There are clustered pleomorphic microcalcifications in the far posterosuperior aspect of the left breast. These are only visualized on MLO and mL views. They could not be visualized on any of the additional CC or exaggerated CC views. IMPRESSION: BIRADS/ACR category 4, suspicious. Clustered pleomorphic microcalcifications superiorly and far posteriorly in the left breast. These are only visualized in MLO and mL projections. Recommend stereotactic biopsy. This mammogram was interpreted with the aid of an FDA-approved computer-aided detection system. The patient letter being requested is M4. RECOMMENDATION: Recommend stereotactic biopsy left breast <Electronically signed by Miguel Grace > 08/01/21 [id number]
== END ==
LOC: M WHC 11:28
PROVIDERS: ATTEND Internal Medicine Hematology & Oncology
DX: R92.0 Mammographic microcalcification found on diagnostic imaging of breast (principal); Z85.3 Personal history of malignant neoplasm of breast
CPT/HCPCS: 77065; G0279

== ENCOUNTER → 2021-08-28 | Outpatient (CLI) | payer BC, OTHER ==
--- NOTE | 2021-08-29 14:38 | SLEEPCENT ---
DATE: 08/28/2021 ORDERED BY: Lexii Macedo Nocturnal polysomnography was performed for the titration of pressure therapy in this patient with a clinical diagnosis of obstructive sleep apnea syndrome confirmed by home testing, revealing a respiratory event index of 34.2. For testing, a ResMed F301 medium-size mask was used. There was 4 cm of water pressure applied to the circuit, and the lights were extinguished. There was 7 hours and 50 minutes of data reviewed. There was 336 minutes of sleep identified. Sleep latency was mildly prolonged at 31 minutes. REM latency was normal at 97.5 minutes. Sleep architecture improved with optimal pressure therapy. There were four REM cycles noted. Overall sleep efficiency was 72.3%. The electrocardiogram showed a sinus rhythm with an average heart rate of 56 beats per minute. Unifocal ventricular ectopic beats were seen. EEG showed normal waveforms for wake and sleep. Respiratory events were best palliated with CPAP at a pressure of 16. There was some minor limb activity early in the study. Limb movement arousal index on this occasion was 6.4. IMPRESSION: Obstructive sleep apnea syndrome (G47.33). RECOMMENDATION: Nightly use of pressure therapy, 16 cm of water.
== END ==
LOC: M SLEEP 20:00
PROVIDERS: ATTEND Nurse Practitioner Adult Health
DX: G47.33 Obstructive sleep apnea (adult) (pediatric) (principal)

== ENCOUNTER → 2021-09-03 | Outpatient (CLI) | payer BC, OTHER ==
[~2021-09-03] MED LIST changes: +GLIM1TAB4 PO
[2021-09-03 11:17] VITALS: BP 142/90
--- NOTE | 2021-09-03 18:13 | REP ---
INDICATION: STEREO BX LEFT BREAST MICROCALCIFICATIONS. COMPARISON: None. TECHNIQUE: This procedure is performed by JOEY Guido, under the direct supervision of Dr. Sommers. The risks and benefits of the procedure were explained to the patient and informed consent was obtained both verbally and written. Directly prior to the start of the procedure, a formal timeout was done in the procedure room. Multiple approaches were utilized on the prone table. The calcifications in question were unable to be visualized on stereotactic biopsy. Multiple attempts were made with the upright mammography biopsy machine, these were also unsuccessful in visualizing the calcifications in question. At this time the biopsy procedure was aborted. FINDINGS: Multiple attempts were made to visualize the calcifications in question. These attempts were unsuccessful. The procedure was aborted. IMPRESSION: Aborted attempt at stereotactic left breast biopsy for calcifications. <Electronically signed by Jolly Mcfarland > 09/03/21 [id number] <Electronically signed by Hermes Sommers > 09/03/21 [id number]
== END ==
LOC: M WHCPRO 08:30
PROVIDERS: ATTEND Surgery
DX: D48.62 Neoplasm of uncertain behavior of left breast (principal); Z53.8 Procedure and treatment not carried out for other reasons

== ENCOUNTER → 2021-10-21 | Outpatient (CLI) | payer BC, OTHER ==
[~2021-10-21] MED LIST changes: +PROHANCE 279.3MG/ML 5ML VIAL As Ordered ONE
== END ==
LOC: M RAD 12:34
PROVIDERS: ATTEND Surgery
DX: N63.21 Unspecified lump in the left breast, upper outer quadrant (principal); Z85.3 Personal history of malignant neoplasm of breast; Z53.9 Procedure and treatment not carried out, unspecified reason

== ENCOUNTER → 2021-12-23 | Outpatient (CLI) | payer BC, OTHER ==
[~2021-12-23] MED LIST changes: +LOSA100T45 PO; -LOSA100T50 PO; -PROHANCE 279.3MG/ML 5ML VIAL As Ordered ONE
== END ==
LOC: M WHC 14:10
PROVIDERS: ATTEND Internal Medicine Hematology & Oncology
DX: M85.851 Other specified disorders of bone density and structure, right thigh (principal); M85.89 Other specified disorders of bone density and structure, multiple sites

== ENCOUNTER 2022-01-13 04:18 | Emergency (ER) | payer BC, OTHER ==
[~2022-01-13] VITALS: Ht 160 cm; Wt 131.2 kg
[2022-01-13 04:53] LABS: BASO # 0.1 10^3/uL (0.0-0.2); BASO % 0.5 % (0.0-1.0); EOS # 0.1 10^3/uL (0.0-0.5); EOS % 1.1 % (0.0-3.0); HEMATOCRIT 36.4 % (36.0-47.0); HEMOGLOBIN 12.3 g/dl (12.0-15.5); LYMPH # 1.4 10^3/uL (1.5-5.0); LYMPH % 13.3 % (24.0-44.0); MEAN CORPUSCULAR HEMOGLOBIN 29.4 pg (27.0-33.0); MEAN CORPUSCULAR HGB CONC 33.8 g/dl (32.0-36.5); MEAN CORPUSCULAR VOLUME 87.1 fl (80.0-96.0); MONO # 0.4 10^3/uL (0.0-0.8); MONO % 3.6 % (2.0-8.0); NEUTROPHILS # 8.3 10^3/uL (1.5-8.5); NEUTROPHILS % 80.6 % (36.0-66.0); PLATELET COUNT, AUTOMATED 253 10^3/uL (150-450); RED BLOOD COUNT 4.18 10^6/uL (4.00-5.40); WHITE BLOOD COUNT 10.3 10^3/uL (4.0-10.0)
[2022-01-13 05:14] LABS: CALCIUM LEVEL 9.6 MG/DL (8.5-10.1); CREATININE FOR GFR 1.24 MG/DL (0.55-1.30); GLOMERULAR FILTRATION RATE 47.6 (>51); POTASSIUM SERUM 3.9 MEQ/L (3.5-5.1)
[2022-01-13] MEDS ORDERED: KETOROLAC 30 MG/ML 1ML VIAL IV ONE (07:55)
[2022-01-13] MEDS ORDERED: ONDANSETRON 4MG/2ML VIAL IV ONE (07:55)
[2022-01-13 08:04] VITALS: BP 168/72
[2022-01-13] MEDS ORDERED: NS 1,000 ML IV ONE (08:10)
[2022-01-13] MEDS ORDERED: cefTRIAXone SOD 1 GM in D5W MINI-BAG PLUS 50 ML IV ONE (08:15)
[2022-01-13] MEDS ORDERED: PERC5TAB12 PO (10:14)
[2022-01-13] MEDS ORDERED: KETO10TAB PO (10:14)
[2022-01-13] MEDS ORDERED: CIPR-249 PO (10:20)
== END 2022-01-13 11:10 | disposition home or self-care (01) ==
LOC: M ED 04:18
DX: N30.01 Acute cystitis with hematuria (principal); N20.0 Calculus of kidney; K56.2 Volvulus; K80.20 Calculus of gallbladder without cholecystitis without obstruction; M25.78 Osteophyte, vertebrae; K57.30 Diverticulosis of large intestine without perforation or abscess without bleeding; R16.0 Hepatomegaly, not elsewhere classified; Q07.00 Arnold-Chiari syndrome without spina bifida or hydrocephalus; Z85.3 Personal history of malignant neoplasm of breast; Z87.891 Personal history of nicotine dependence; Z79.899 Other long term (current) drug therapy
CPT/HCPCS: 74176; 80048; 81001; 83690; 85025; 87088; 87186; 96361; 96365; 96366; 96375; 99284; J0696; J1885; J2405

== ENCOUNTER → 2022-01-15 | Outpatient (CLI) | payer BC, OTHER ==
[~2022-01-15] MED LIST changes: +CIPR-249 PO; +KETO10TAB PO; +PERC5TAB12 PO
== END ==
LOC: M RAD 14:23
PROVIDERS: ATTEND Nurse Practitioner Women's Health
DX: Z01.818 Encounter for other preprocedural examination (principal); N13.2 Hydronephrosis with renal and ureteral calculous obstruction

== ENCOUNTER → 2022-01-18 | Outpatient (CLI) | payer BC, OTHER | LOC: M LABSMTC 11:39 | PROVIDERS: ATTEND Anesthesiology | DX: Z01.812 Encounter for preprocedural laboratory examination (principal); Z20.822 Contact with and (suspected) exposure to COVID-19 ==

== ENCOUNTER → 2022-02-20 | Outpatient (CLI) | payer BC, OTHER | LOC: M WHC 14:07 | PROVIDERS: ATTEND Surgery | DX: R92.1 Mammographic calcification found on diagnostic imaging of breast (principal) | CPT/HCPCS: 77065; G0279 ==

== ENCOUNTER → 2022-07-15 | Outpatient (CLI) | payer BC, OTHER ==
[~2022-07-15] MED LIST changes: +AMLO1TAB25 PO; +GLIM2TAB29 PO
== END ==
LOC: M WHC 14:11
PROVIDERS: ATTEND Internal Medicine Medical Oncology
DX: Z85.3 Personal history of malignant neoplasm of breast (principal)
CPT/HCPCS: 77066; G0279

== ENCOUNTER → 2022-08-12 | Outpatient (REF) | payer BC, OTHER | LOC: M SFHCDERM 17:33 | PROVIDERS: ATTEND Nurse Practitioner Family | DX: C44.612 Basal cell carcinoma of skin of right upper limb, including shoulder (principal) ==

== ENCOUNTER → 2022-08-18 | Outpatient (CLI) | payer BC, OTHER | LOC: M RAD 14:43 | PROVIDERS: ATTEND Urology | DX: Z87.442 Personal history of urinary calculi (principal) ==

== ENCOUNTER → 2022-09-15 | Outpatient (REF) | payer OTHER | LOC: M LAB REF 17:04 | PROVIDERS: ATTEND Surgery | DX: C44.612 Basal cell carcinoma of skin of right upper limb, including shoulder (principal) ==

== ENCOUNTER → 2023-02-04 | Outpatient (CLI) | payer BC, OTHER ==
[~2023-02-04] MED LIST changes: +SEMA1PEN2
== END ==
LOC: M RAD 15:12
PROVIDERS: ATTEND Nurse Practitioner Family
DX: M25.531 Pain in right wrist (principal); M19.041 Primary osteoarthritis, right hand

== ENCOUNTER → 2023-04-10 | Outpatient (REF) | payer BC, OTHER ==
[~2023-04-10] MED LIST changes: -LOSA100T45 PO; +LOSA100T46 PO
[2023-04-10 19:31] LABS: BACTERIA, URINE AUTO NEGATIVE (NEGATIVE); MUCUS, URINE SMALL (NEGATIVE); RBC, URINE AUTO 3 /HPF (0-3); SQUAMOUS EPITHELIAL CELL UR AU 5 /HPF (0-6); URIC ACID CRYSTALS SMALL; WBC, URINE AUTO 13 /HPF (0-3)
== END ==
LOC: M SMT 16:53
PROVIDERS: ATTEND Specialist
DX: N39.46 Mixed incontinence (principal)

== ENCOUNTER → 2023-05-13 | Outpatient (REF) | payer BC, OTHER ==
[~2023-05-13] MED LIST changes: +OXYB-54 PO
== END ==
LOC: M SFHCWAGY 17:34
PROVIDERS: ATTEND Obstetrics & Gynecology
DX: Z12.4 Encounter for screening for malignant neoplasm of cervix (principal); N95.2 Postmenopausal atrophic vaginitis
CPT/HCPCS: 87624; G0123

== ENCOUNTER → 2023-07-27 | Outpatient (CLI) | payer BC, OTHER | LOC: M WHC 13:48 | PROVIDERS: ATTEND Nurse Practitioner | DX: Z85.3 Personal history of malignant neoplasm of breast (principal); Z98.890 Other specified postprocedural states | CPT/HCPCS: 77066; G0279 ==

== ENCOUNTER → 2023-07-30 | Outpatient (CLI) | payer BC, OTHER ==
[~2023-07-30] MED LIST changes: +FARX1TAB5
== END ==
LOC: M EKG 16:14
PROVIDERS: ATTEND Nurse Practitioner
DX: I49.3 Ventricular premature depolarization (principal); C50.919 Malignant neoplasm of unspecified site of unspecified female breast

== ENCOUNTER → 2024-03-15 | Outpatient (CLI) | payer BC ==
[~2024-03-15] MED LIST changes: -GLIM1TAB4 PO; +GLIM1TAB84 PO; +TIRZ5PEN
== END ==
LOC: M WHC 14:24
PROVIDERS: ATTEND Nurse Practitioner
DX: C50.919 Malignant neoplasm of unspecified site of unspecified female breast (principal); Z79.899 Other long term (current) drug therapy; M85.89 Other specified disorders of bone density and structure, multiple sites

== ENCOUNTER → 2024-10-05 | Outpatient (CLI) | payer BC | LOC: M WHC 14:12 | PROVIDERS: ATTEND Internal Medicine Hematology & Oncology | DX: C50.919 Malignant neoplasm of unspecified site of unspecified female breast (principal) | CPT/HCPCS: 77066; G0279 ==

== ENCOUNTER → 2025-03-07 | Outpatient (REF) | payer BC | LOC: M SFHCDERM 18:03 | PROVIDERS: ATTEND Nurse Practitioner Family | DX: C44.91 Basal cell carcinoma of skin, unspecified (principal) ==